=== PATIENT | female | born 1945 | race Caucasian/White ===

== ENCOUNTER 2018-01-31 20:40 | Emergency (ER) | payer OTHER, BC ==
[~2018-01-31] VITALS: Ht 162.6 cm; Wt 89.8 kg
[2018-01-31 20:43] VITALS: BP_SYST 159
[2018-01-31] MEDS ORDERED: AMOXICILLIN/CLAVULANATE POTASSIUM 875 MG TABLET PO ONE (21:45)
[2018-01-31] MEDS ORDERED: IBUPROFEN 800 MG TABLET PO ONE (21:45)
[2018-01-31] MEDS ORDERED: DIPH-TET-PERTUS Vaccine 0.5 ML VIAL (ADACEL) IM ONE (21:45)
[2018-01-31 22:20] VITALS: BP_SYST 155
== END 2018-01-31 22:20 | disposition home or self-care (01) ==
LOC: SED 20:40
DX: S61.011A Laceration without foreign body of right thumb without damage to nail, initial encounter (principal); W55.03XA Scratched by cat, initial encounter; Y93.89 Activity, other specified; Y92.89 Other specified places as the place of occurrence of the external cause; Y99.8 Other external cause status
CPT/HCPCS: 90715; 99283

== ENCOUNTER 2019-06-05 01:18 | Emergency (ER) | payer OTHER, BC ==
[~2019-06-05] VITALS: Ht 162.6 cm; Wt 79.4 kg
[2019-06-05 01:36] VITALS: BP_SYST 155
--- NOTE | 2019-06-05 01:36 | NUR ---
Patient to ER bed 02 to gown for evaluation. Side rails up. Report given to KATIA Ortega.
[2019-06-05] MEDS ORDERED: NACL 0.9% 1,000 ML IV ONE (01:40)
--- NOTE | 2019-06-05 01:40 | NUR ---
Patient came into ED because she was feeling dizziness and numbness throughout her body. Pt's neuro exam is within normal limits. Pt denies SOB. Pt denies pain. Pt has some nausea, but denies V/D. Pt is A&Ox4. Pt is very talkative and is laughing often. Pt brought in a vial of CBD oil that she took this evening before the symptoms began. Bottle said "THC rich" and contained 3.75mg of THC. Pt is laying comfortably in rney, partner at her side. Will continue to monitor.
--- NOTE | 2019-06-05 01:45 | NUR ---
ER Dr. Mtz at bedside examining patient.
--- NOTE | 2019-06-05 02:20 | NUR ---
Patient transported to radiology via gurney, accompanied by rad staff.
--- NOTE | 2019-06-05 02:31 | NUR ---
pt back from radiology
[2019-06-05 02:33] LABS: BASOPHILS % (AUTO) 0.6 % (0.0-2.0); EOSINOPHILS # (AUTO) 0.2 K/uL (0.0-0.4); EOSINOPHILS % (AUTO) 2.8 % (0.0-4.0); HEMATOCRIT 37.4 % (36-48); HEMOGLOBIN 12.6 g/dL (12.0-16.0); LYMPHOCYTES # (AUTO) 2.3 K/uL (1.0-5.5); LYMPHOCYTES % (AUTO) 30.9 % (20.5-51.5); MEAN CORPUSCULAR HEMOGLOBIN 28 pg (27-31); MEAN CORPUSCULAR HGB CONC 34 % (32-36); MEAN CORPUSCULAR VOLUME 83 fL (79.0-98.0); MONOCYTES # (AUTO) 0.5 K/uL (0.0-1.0); MONOCYTES % (AUTO) 6.9 % (1.7-9.3); NEUTROPHILS # (AUTO) 4.3 K/uL (1.8-7.7); NEUTROPHILS % (AUTO) 58.8 % (40.0-70.0); PLATELET COUNT (AUTO) 237 K/uL (130-430); RED BLOOD CELL COUNT(AUTO) 4.49 MIL/uL (4.2-6.2); RED CELL DISTRIBUTION WIDTH 13.8 % (9.0-15.0); WHITE BLOOD COUNT (AUTO) 7.4 K/uL (4.8-10.8)
[2019-06-05 02:40] LABS: ANION GAP 10 (5-15); CALCIUM 9.4 mg/dL (8.4-11.0); CHLORIDE 104 mmol/L (98-107); GLUCOSE 130 mg/dL (70-99); POTASSIUM 3.6 mmol/L (3.5-5.1); SODIUM SERUM 139 mmol/L (136-145); UREA NITROGEN, BLOOD 25 mg/dL (8-21)
[2019-06-05 02:44] LABS: ALANINE AMINOTRANSFERASE 24 U/L (12-78); ALBUMIN 3.7 g/dL (3.4-4.8); ASPARTATE AMINOTRANSFERASE 17 U/L (10-37); LIPASE 136 U/L (73-393); TOTAL BILIRUBIN 0.3 mg/dL (0.0-1.0)
[2019-06-05 02:45] LABS: PROTHROMBIN TIME 10.2 SECS (9.5-12.5)
[2019-06-05 02:46] LABS: ALCOHOL, BLOOD 0 mg/dL (<10)
--- NOTE | 2019-06-05 02:50 | NUR ---
Patient had a large emesis after using restroom. aware. Endorsed to [place].
--- NOTE | 2019-06-05 02:56 | NUR ---
report given to KATIA Guaman for continuation of care.
[2019-06-05] MEDS ORDERED: ONDANSETRON HCL 4 MG/2 ML VIAL IVP ONE (03:00)
--- NOTE | 2019-06-05 03:00 | NUR ---
Pt resting in bed, partner at bedside. Pt talking and laughing, no signs of acute distress. Will cont. to monitor.
[2019-06-05 03:05] LABS: BILIRUBIN,URINE NEGATIVE (NEGATIVE); BLOOD, URINE NEGATIVE (NEGATIVE); CLARITY/URINE CLEAR (CLEAR); COLOR,URINE YELLOW (YELLOW); GLUCOSE,URINE NEGATIVE (NEGATIVE); KETONES,URINE 1+ (NEGATIVE); LEUKOCYTE ESTERASE ,URINE TRACE (NEGATIVE); NITRITE, URINE NEGATIVE (NEGATIVE); PROTEIN URINE NEGATIVE (NEGATIVE); UROBILINOGEN,URINE 0.2 (0.2-1.0)
[2019-06-05 03:26] LABS: BARBITURATE, URINE NEGATIVE (NEG <=200); BENZODIAZEPINE, URINE NEGATIVE (NEG <=150); CANNABINOID, URINE POSITIVE (NEG <=50); COCAINE, URINE NEGATIVE (NEG <=150); METHAMPHETAMINES SCREEN,URINE NEGATIVE (NEG <=500); OPIATE, URINE NEGATIVE (NEG <=100); PHENCYCLIDINE SCREEN,URINE NEGATIVE (NEG <=25); UR TRICYCLIC ANTIDEPRESSANTS NEGATIVE (NEG <=300); URINE AMPHETAMINE NEGATIVE (NEG <=500); URINE METHADONE NEGATIVE (NEG <=200); URINE OXYCODONE SCREEN NEGATIVE (NEG <=100); URINE PROPOXYPHENE SCREEN NEGATIVE (NEG <=300)
[2019-06-05 03:41] LABS: BACTERIA,URINE FEW /HPF (None Seen)
[2019-06-05 04:20] VITALS: BP_SYST 155
--- NOTE | 2019-06-05 04:20 | NUR ---
Patient given written and verbal discharge instructions and verbalizes understanding. ER MD Dr. Mtz discussed with patient the results and treatment provided. Patient in stable condition. ID arm band removed. IV catheter removed intact and dressing applied, no active bleeding. Rx of zofran given. Patient educated on pain management and to follow up with PMD. Pain Scale 0/10. Opportunity for questions provided and answered. Medication side effect fact sheet provided.
== END 2019-06-05 04:20 | disposition home or self-care (01) ==
LOC: SED 01:18
DX: F41.9 Anxiety disorder, unspecified (principal); F12.929 Cannabis use, unspecified with intoxication, unspecified; Y90.0 Blood alcohol level of less than 20 mg/100 ml
CPT/HCPCS: 36415; 70450; 80053; 80307; 81000; 83605; 83690; 84484; 85025; 85610; 85730; 87040; 87086; 93005; 96361; 96374; 99284; G0482; J2405; J7030